=== PATIENT | female | born 1980 | race Caucasian/White ===

== ENCOUNTER 2019-02-26 15:52 | Emergency (ER) | payer BC ==
[~2019-02-26] VITALS: Ht 167.6 cm; Wt 104.5 kg
[2019-02-26 16:23] VITALS: BP 123/81; TEMP 98
[2019-02-26] MEDS ORDERED: CLARITIN-D 10 M1 T24 PO (18:13)
[2019-02-26] MEDS ORDERED: PRIL40 PO (18:13)
[2019-02-26] MEDS ORDERED: THRIVE (18:14)
[2019-02-26] MEDS ORDERED: CRUTCHES MC (19:46)
[2019-02-26] MEDS ORDERED: NORCO 325 MG-51 TAB PO (19:46)
[2019-02-26 19:57] VITALS: PULSE 84
== END 2019-02-26 19:57 | disposition home or self-care (01) ==
LOC: COL.ER 15:52
DX: S92.211A Displaced fracture of cuboid bone of right foot, initial encounter for closed fracture (principal); K21.9 Gastro-esophageal reflux disease without esophagitis; X50.1XXA Overexertion from prolonged static or awkward postures, initial encounter